=== PATIENT | male | born 1980 | race Caucasian/White ===

== ENCOUNTER 2021-09-27 14:57 | Emergency (ER) | payer OTHER ==
[2021-09-27] MEDS ORDERED: Sodium Chloride 0.9% 10 ML Syringe FLUSH PRN (15:09)
== END 2021-09-27 16:45 | disposition home or self-care (01) ==
LOC: JD.ED 14:57
DX: R07.2 Precordial pain (principal); Z91.048 Other nonmedicinal substance allergy status; Z72.0 Tobacco use
CPT/HCPCS: 36415; 71046; 80053; 83735; 83880; 84484; 85007; 85027; 85379; 85610; 85730; 93005; 99285; J3490; 93010